=== PATIENT | male | born 1945 | race Caucasian/White ===

== ENCOUNTER 2018-08-15 16:44 | Inpatient (IN) | payer MEDICARE, MEDICAID ==
[2018-08-15 17:30] VITALS: BP 158/80
[2018-08-15] MEDS ORDERED: Magnesium Hydroxide (MOM) 30 mL UDC PO PRN (18:42)
[2018-08-15] MEDS ORDERED: Maalox 30 mL Cup PO PRN (18:42)
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
[2018-08-16] MEDS ORDERED: GLUCAGON HCl 1 MG KIT IM PRN (05:28)
[2018-08-16] MEDS ORDERED: Dextrose 50% 50 mL Abboject IVP PRN (05:28)
[2018-08-16] MEDS: INSULIN LISPRO SLIDING SCALE 100 UNITS/ML UNIT SUBQ SCH ×4 (06:36→20:33)
[2018-08-16 06:58] LABS: CHOLESTEROL 206 mg/dL (<200); HDL -HIGH DENSITY LIPOPROTEIN 39 mg/dL (23-92); TRIGLYCERIDES 144 mg/dL (<150)
[2018-08-16] MEDS ORDERED: INSULIN LISPRO 100 UNIT/ML VIAL SUBQ SCH (07:30)
[2018-08-16] MEDS ORDERED: Non-Formulary Item 1 EA (Cholecalciferol (Vitamin D3) [Vitamin D3] 5,000 UNIT) PO SCH (09:00)
[2018-08-16] MEDS ORDERED: NALOXEGOL OXALATE 12.5 MG PO SCH (09:00)
[2018-08-16] MEDS ORDERED: Non-Formulary Item 1 EA (Linaclotide [Linzess] 145 MCG) PO SCH (09:00)
[2018-08-16] MEDS ORDERED: Aspirin 81mg Chewable Tab PO SCH (09:00)
[2018-08-16] MEDS ORDERED: Ferrous Sulfate 325 MG TAB PO SCH (09:00)
[2018-08-16] MEDS: Ferrous Sulfate 325 MG TAB PO SCH (10:11)
[2018-08-16] MEDS: Multivitamin Tab PO SCH (10:12)
[2018-08-16] MEDS ORDERED: Non-Formulary Item 1 EA (Gabapentin [Gabapentin] 600 MG) PO SCH (17:00)
[2018-08-16] MEDS: Insulin Glargine 100 units/ml 10ml Vial SUBQ SCH (20:32)
[2018-08-16] MEDS ORDERED: Insulin Glargine 100 units/ml 10ml Vial SUBQ SCH (21:00)
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
[2018-08-17] MEDS: INSULIN LISPRO SLIDING SCALE 100 UNITS/ML UNIT SUBQ SCH ×4 (06:44→20:58)
--- NOTE | 2018-08-17 08:36 | General Progress Note ---
Subjective - Review of Systems Service Date: 08/17/18 Subjective: Patient is awake, alert, no acute distress. Vs T 97.3 P92 BP 124/82 R20 Objective - Results Recent Labs: Laboratory Last Values POC Glucose 148 MG/DL (70 - 105) H 08/17/18 06:38 Triglycerides 144 mg/dL (<150) 08/16/18 05:50 Cholesterol 206 mg/dL (<200) H 08/16/18 05:50 LDL Cholesterol Direct 164 mg/dL (75-193) 08/16/18 05:50 HDL Cholesterol 39 mg/dL (23-92) 08/16/18 05:50 - Physical Exam Vitals and I&O: Vital Signs Temp 97.3 F 08/17/18 06:08 Pulse 92 08/17/18 06:08 Resp 20 08/17/18 06:08 BP 124/82 08/17/18 06:08 Pulse Ox 99 08/17/18 06:08 Intake & Output 08/16/18 08/17/18 08/17/18 18:59 06:59 18:59 Intake Total 300 Balance 300 Intake: Oral 300 Other: # Voids 1 # Bowel Movements 0 Active Medications: Current Medications Acetaminophen (Tylenol) 650 mg PO Q4HR PRN PRN Reason: Mild Pain / Temp above 100 Stop: 10/14/18 18:41 Last Admin: 08/16/18 20:32 Dose: 650 mg Al Hydrox/Mg Hydrox/Simethicone (Maalox) 30 ml PO Q4HR PRN PRN Reason: GI DISTRESS Stop: 10/14/18 18:41 Amlodipine Besylate (Norvasc) 10 mg PO DAILY [facility] Stop: 10/16/18 08:59 Ascorbic Acid (Vitamin C) 500 mg PO DAILY [facility] Stop: 10/15/18 08:59 Last Admin: 08/16/18 10:12 Dose: 500 mg Baclofen (Lioresal) 10 mg PO TID [facility] Stop: 10/15/18 08:59 Last Admin: 08/16/18 20:31 Dose: 10 mg Cholecalciferol (Vitamin D3) 2,000 iu PO DAILY [facility] Stop: 10/15/18 08:59 Last Admin: 08/16/18 10:09 Dose: 2,000 iu Clopidogrel Bisulfate (Plavix) 75 mg PO DAILY [facility] Stop: 10/16/18 08:59 Dextrose (D50w) 50 ml IVP PRN PRN PRN Reason: Blood Glucose less than 70 Stop: 10/15/18 05:27 Dextrose (Glutose 40%) 18.75 gm PO PRN PRN PRN Reason: Blood Glucose less than 70 Stop: 10/15/18 05:27 Diphenhydramine HCl (Benadryl) 25 mg PO Q6HR PRN PRN Reason: Itching Stop: 10/15/18 20:12 Ferrous Sulfate (Iron) 325 mg PO DAILY [facility] Stop: 10/15/18 08:59 Last Admin: 08/16/18 10:11 Dose: 325 mg Finasteride (Proscar) 5 mg PO DAILY [facility]; Protocol Stop: 10/15/18 08:59 Last Admin: 08/16/18 10:09 Dose: 5 mg Gabapentin (Neurontin) 600 mg PO DAILY [facility] Stop: 10/15/18 08:59 Last Admin: 08/16/18 10:11 Dose: 600 mg Glucagon (Glucagen) 1 mg IM PRN PRN PRN Reason: Blood Glucose less than 70 Stop: 10/15/18 05:27 Insulin Glargine (Lantus Insulin) 10 units SUBQ HS [facility] Stop: 10/15/18 20:59 Last Admin: 08/16/18 20:32 Dose: 10 unit Insulin Human Lispro (Humalog Insulin Sliding Scale) 0 units SUBQ [facility]; Protocol Stop: 10/15/18 07:29 Last Admin: 08/17/18 06:44 Dose: Not Given Lorazepam (Ativan) 0.5 mg PO Q4HR PRN; Protocol PRN Reason: Agitation Stop: 09/14/18 18:41 Last Admin: 08/16/18 23:03 Dose: 0.5 mg Magnesium Hydroxide (Milk Of Magnesia) 30 ml PO HS PRN PRN Reason: Constipation Metformin HCl (Glucophage) 1,000 mg PO BIDWM [facility] Stop: 10/15/18 07:59 Last Admin: 08/16/18 18:28 Dose: 1,000 mg Multivitamins/Vitamin C (Theragran) 1 tab PO DAILY [facility] Stop: 10/15/18 08:59 Last Admin: 08/16/18 10:12 Dose: 1 tab Nitroglycerin (Nitrostat) 0.4 mg SL Q5MIN PRN PRN Reason: Chest Pain Stop: 10/15/18 06:18 Tamsulosin HCl (Flomax) 0.4 mg PO HS [facility] Stop: 10/15/18 20:59 Last Admin: 08/16/18 20:36 Dose: 0.4 mg Zolpidem Tartrate (Ambien) 5 mg PO HS PRN PRN Reason: Insomnia Stop: 10/14/18 18:41 General: Alert, Oriented x3 HEENT: Atraumatic, PERRLA, EOMI Neck: Supple Cardiovascular: Regular rate, Normal S1, Normal S2 Lungs: Clear to auscultation Abdomen: Bowel sounds Extremities: no Clubbing, no Cyanosis, no Edema Neurological: Normal gait, Normal speech Assessment/Plan - Assessment Assessment: Psychosis Type 2 DM HTN Depression Cognitive Impairment Incontinence Diabetic Neuropathy CAD BPH Chronic LBP - Plan Plan: admit to [facility] continue home meds
[2018-08-17] MEDS: Multivitamin Tab PO SCH (08:43)
[2018-08-17] MEDS: Ferrous Sulfate 325 MG TAB PO SCH (08:43)
[2018-08-17] MEDS: Insulin Glargine 100 units/ml 10ml Vial SUBQ SCH (20:58)
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
--- NOTE | 2018-08-18 02:53 | Progress Notes ---
DATE: 08/17/2018 PSYCHIATRIC PROGRESS NOTE Staff was spoken to. The patient is interviewed. Mood is noted to be irritable. Affect is constricted. Insight and judgment are noted to be still impaired. Impulse control is also limited. Coping skills are noted to be limited. The patient is stating that he is willing to take his medication for his sugar and blood pressure, but is not willing to take any psych medications because he is not sick. The patient is isolative and withdrawn at this time. The patient is being closely monitored for any inappropriate behavior. JOB# [id number]
[2018-08-18] MEDS: INSULIN LISPRO SLIDING SCALE 100 UNITS/ML UNIT SUBQ SCH ×4 (06:30→21:15)
--- NOTE | 2018-08-18 08:15 | General Progress Note ---
Subjective - Review of Systems Service Date: 08/18/18 Subjective: Patient is awake, alert, no acute distress. Vs T 98.1 P82 BP 132/85 R20 Blood Sugars mid 100's Objective - Results Recent Labs: Laboratory Last Values POC Glucose 149 MG/DL (70 - 105) H 08/18/18 06:00 Triglycerides 144 mg/dL (<150) 08/16/18 05:50 Cholesterol 206 mg/dL (<200) H 08/16/18 05:50 LDL Cholesterol Direct 164 mg/dL (75-193) 08/16/18 05:50 HDL Cholesterol 39 mg/dL (23-92) 08/16/18 05:50 - Physical Exam Vitals and I&O: Vital Signs Temp 98.1 F 08/18/18 06:36 Pulse 82 08/18/18 06:36 Resp 20 08/18/18 06:36 BP 138/85 08/18/18 06:36 Pulse Ox 95 08/18/18 06:36 Intake & Output 08/17/18 08/18/18 08/18/18 18:59 06:59 18:59 Intake Total 1000 240 Balance 1000 240 Intake: Oral 1000 240 Other: # Voids 4 3 # Bowel Movements 0 0 Active Medications: Current Medications Acetaminophen (Tylenol) 650 mg PO Q4HR PRN PRN Reason: Mild Pain / Temp above 100 Stop: 10/14/18 18:41 Last Admin: 08/18/18 00:37 Dose: 650 mg Al Hydrox/Mg Hydrox/Simethicone (Maalox) 30 ml PO Q4HR PRN PRN Reason: GI DISTRESS Stop: 10/14/18 18:41 Amlodipine Besylate (Norvasc) 10 mg PO DAILY [facility] Stop: 10/16/18 08:59 Last Admin: 08/17/18 08:43 Dose: Not Given Ascorbic Acid (Vitamin C) 500 mg PO DAILY [facility] Stop: 10/15/18 08:59 Last Admin: 08/17/18 08:43 Dose: Not Given Baclofen (Lioresal) 10 mg PO TID [facility] Stop: 10/15/18 08:59 Last Admin: 08/17/18 20:56 Dose: 10 mg Cholecalciferol (Vitamin D3) 2,000 iu PO DAILY [facility] Stop: 10/15/18 08:59 Last Admin: 08/17/18 08:43 Dose: Not Given Clopidogrel Bisulfate (Plavix) 75 mg PO DAILY [facility] Stop: 10/16/18 08:59 Last Admin: 08/17/18 08:43 Dose: Not Given Dextrose (D50w) 50 ml IVP PRN PRN PRN Reason: Blood Glucose less than 70 Stop: 10/15/18 05:27 Dextrose (Glutose 40%) 18.75 gm PO PRN PRN PRN Reason: Blood Glucose less than 70 Stop: 10/15/18 05:27 Diphenhydramine HCl (Benadryl) 25 mg PO Q6HR PRN PRN Reason: Itching Stop: 10/15/18 20:12 Ferrous Sulfate (Iron) 325 mg PO DAILY [facility] Stop: 10/15/18 08:59 Last Admin: 08/17/18 08:43 Dose: Not Given Finasteride (Proscar) 5 mg PO DAILY [facility]; Protocol Stop: 10/15/18 08:59 Last Admin: 08/17/18 08:43 Dose: Not Given Gabapentin (Neurontin) 600 mg PO DAILY [facility] Stop: 10/15/18 08:59 Last Admin: 08/17/18 08:43 Dose: Not Given Glucagon (Glucagen) 1 mg IM PRN PRN PRN Reason: Blood Glucose less than 70 Stop: 10/15/18 05:27 Insulin Glargine (Lantus Insulin) 10 units SUBQ HS [facility] Stop: 10/15/18 20:59 Last Admin: 08/17/18 20:58 Dose: 10 unit Insulin Human Lispro (Humalog Insulin Sliding Scale) 0 units SUBQ [facility]; Protocol Stop: 10/15/18 07:29 Last Admin: 08/18/18 06:30 Dose: Not Given Lorazepam (Ativan) 0.5 mg PO Q4HR PRN; Protocol PRN Reason: Agitation Stop: 09/14/18 18:41 Last Admin: 08/18/18 00:34 Dose: 0.5 mg Magnesium Hydroxide (Milk Of Magnesia) 30 ml PO HS PRN PRN Reason: Constipation Metformin HCl (Glucophage) 1,000 mg PO BIDWM [facility] Stop: 10/15/18 07:59 Last Admin: 08/17/18 17:22 Dose: 1,000 mg Multivitamins/Vitamin C (Theragran) 1 tab PO DAILY [facility] Stop: 10/15/18 08:59 Last Admin: 08/17/18 08:43 Dose: Not Given Mupirocin (Bactroban Oint) 1 appl NS BID [facility] Stop: 08/22/18 17:01 Nitroglycerin (Nitrostat) 0.4 mg SL Q5MIN PRN PRN Reason: Chest Pain Stop: 10/15/18 06:18 Tamsulosin HCl (Flomax) 0.4 mg PO HS [facility] Stop: 10/15/18 20:59 Last Admin: 08/17/18 20:57 Dose: 0.4 mg Zolpidem Tartrate (Ambien) 5 mg PO HS PRN PRN Reason: Insomnia Stop: 10/14/18 18:41 General: Alert, Oriented x3 HEENT: Atraumatic, PERRLA, EOMI Neck: Supple Cardiovascular: Regular rate, Normal S1, Normal S2 Lungs: Clear to auscultation Abdomen: Bowel sounds Extremities: no Clubbing, no Cyanosis, no Edema Neurological: Normal gait, Normal speech Assessment/Plan - Assessment Assessment: Psychosis Type 2 DM HTN Depression Cognitive Impairment Incontinence Diabetic Neuropathy CAD BPH Chronic LBP - Plan Plan: admit to [facility] continue home meds
[2018-08-18] MEDS: Multivitamin Tab PO SCH (09:55)
[2018-08-18] MEDS: Ferrous Sulfate 325 MG TAB PO SCH (09:55)
[2018-08-18] MEDS: Insulin Glargine 100 units/ml 10ml Vial SUBQ SCH (21:14)
--- NOTE | 2018-08-19 01:54 | Progress Notes ---
DATE: 08/18/2018 SUBJECTIVE: Staff was spoken to. The patient is interviewed. Mood is noted to be irritable. Affect is constricted. Insight and judgment are noted to be improving. Impulse control seems to be fair, but in the previous facility, he has reported that the patient has been sexually preoccupied and has been trying to pull his pants down, but at this time, they have been observing the patient and we have not seen that kind of sexualized behavior. PLAN: To closely monitor the patient. I encouraged the patient to verbalize the concerns rather than to act out. JOB# [id number]
[2018-08-19] MEDS: INSULIN LISPRO SLIDING SCALE 100 UNITS/ML UNIT SUBQ SCH ×4 (07:05→20:57)
--- NOTE | 2018-08-19 08:13 | General Progress Note ---
Subjective - Review of Systems Service Date: 08/19/18 Subjective: Patient is awake, alert, no acute distress. Vs T 98.1 P82 BP 132/85 R20 Blood Sugars mid 100's to 200's Objective - Results Recent Labs: Laboratory Last Values POC Glucose 186 MG/DL (70 - 105) H 08/19/18 06:36 Triglycerides 144 mg/dL (<150) 08/16/18 05:50 Cholesterol 206 mg/dL (<200) H 08/16/18 05:50 LDL Cholesterol Direct 164 mg/dL (75-193) 08/16/18 05:50 HDL Cholesterol 39 mg/dL (23-92) 08/16/18 05:50 - Physical Exam Vitals and I&O: Vital Signs Temp 97.9 F 08/19/18 06:44 Pulse 89 08/19/18 06:44 Resp 20 08/19/18 06:44 BP 147/87 08/19/18 06:44 Pulse Ox 97 08/19/18 06:44 Intake & Output 08/18/18 08/19/18 08/19/18 18:59 06:59 18:59 Intake Total 240 Balance 240 Intake: Oral 240 Other: # Voids 3 # Bowel Movements 0 Active Medications: Current Medications Acetaminophen (Tylenol) 650 mg PO Q4HR PRN PRN Reason: Mild Pain / Temp above 100 Stop: 10/14/18 18:41 Last Admin: 08/18/18 00:37 Dose: 650 mg Al Hydrox/Mg Hydrox/Simethicone (Maalox) 30 ml PO Q4HR PRN PRN Reason: GI DISTRESS Stop: 10/14/18 18:41 Amlodipine Besylate (Norvasc) 10 mg PO DAILY [facility] Stop: 10/16/18 08:59 Last Admin: 08/18/18 09:55 Dose: 10 mg Ascorbic Acid (Vitamin C) 500 mg PO DAILY [facility] Stop: 10/15/18 08:59 Last Admin: 08/18/18 09:55 Dose: 500 mg Baclofen (Lioresal) 10 mg PO TID [facility] Stop: 10/15/18 08:59 Last Admin: 08/18/18 21:03 Dose: 10 mg Cholecalciferol (Vitamin D3) 2,000 iu PO DAILY [facility] Stop: 10/15/18 08:59 Last Admin: 08/18/18 09:55 Dose: 2,000 iu Clopidogrel Bisulfate (Plavix) 75 mg PO DAILY [facility] Stop: 10/16/18 08:59 Last Admin: 08/18/18 09:55 Dose: 75 mg Dextrose (D50w) 50 ml IVP PRN PRN PRN Reason: Blood Glucose less than 70 Stop: 10/15/18 05:27 Dextrose (Glutose 40%) 18.75 gm PO PRN PRN PRN Reason: Blood Glucose less than 70 Stop: 10/15/18 05:27 Diphenhydramine HCl (Benadryl) 25 mg PO Q6HR PRN PRN Reason: Itching Stop: 10/15/18 20:12 Ferrous Sulfate (Iron) 325 mg PO DAILY [facility] Stop: 10/15/18 08:59 Last Admin: 08/18/18 09:55 Dose: 325 mg Finasteride (Proscar) 5 mg PO DAILY [facility]; Protocol Stop: 10/15/18 08:59 Last Admin: 08/18/18 09:55 Dose: 5 mg Gabapentin (Neurontin) 600 mg PO DAILY [facility] Stop: 10/15/18 08:59 Last Admin: 08/18/18 09:55 Dose: 600 mg Glucagon (Glucagen) 1 mg IM PRN PRN PRN Reason: Blood Glucose less than 70 Stop: 10/15/18 05:27 Insulin Glargine (Lantus Insulin) 6 units SUBQ BID [facility] Stop: 10/18/18 08:59 Insulin Human Lispro (Humalog Insulin Sliding Scale) 0 units SUBQ ACHS [facility]; Protocol Stop: 10/15/18 07:29 Last Admin: 08/19/18 07:05 Dose: 2 units Lorazepam (Ativan) 0.5 mg PO Q4HR PRN; Protocol PRN Reason: Agitation Stop: 09/14/18 18:41 Last Admin: 08/18/18 00:34 Dose: 0.5 mg Magnesium Hydroxide (Milk Of Magnesia) 30 ml PO HS PRN PRN Reason: Constipation Metformin HCl (Glucophage) 1,000 mg PO BIDWM [facility] Stop: 10/15/18 07:59 Last Admin: 08/18/18 17:14 Dose: 1,000 mg Multivitamins/Vitamin C (Theragran) 1 tab PO DAILY [facility] Stop: 10/15/18 08:59 Last Admin: 08/18/18 09:55 Dose: 1 tab Mupirocin (Bactroban Oint) 1 appl NS BID [facility] Stop: 08/22/18 17:01 Last Admin: 08/18/18 17:10 Dose: 1 appl Nitroglycerin (Nitrostat) 0.4 mg SL Q5MIN PRN PRN Reason: Chest Pain Stop: 10/15/18 06:18 Tamsulosin HCl (Flomax) 0.4 mg PO HS [facility] Stop: 10/15/18 20:59 Last Admin: 08/18/18 21:03 Dose: 0.4 mg Zolpidem Tartrate (Ambien) 5 mg PO HS PRN PRN Reason: Insomnia Stop: 10/14/18 18:41 General: Alert, Oriented x3 HEENT: Atraumatic, PERRLA, EOMI Neck: Supple Cardiovascular: Regular rate, Normal S1, Normal S2 Lungs: Clear to auscultation Abdomen: Bowel sounds Extremities: no Clubbing, no Cyanosis, no Edema Neurological: Normal gait, Normal speech Assessment/Plan - Assessment Assessment: Psychosis Type 2 DM HTN Depression Cognitive Impairment Incontinence Diabetic Neuropathy CAD BPH Chronic LBP - Plan Plan: admit to [facility] continue home meds increase Lantus to 6u BID
[2018-08-19] MEDS: Ferrous Sulfate 325 MG TAB PO SCH (09:42)
[2018-08-19] MEDS: Multivitamin Tab PO SCH (09:46)
[2018-08-19] MEDS: Insulin Glargine 100 units/ml 10ml Vial SUBQ SCH ×2 (10:00→17:09)
--- NOTE | 2018-08-19 15:53 | Progress Notes ---
DATE: 08/19/2018 SUBJECTIVE: Staff was spoken to. The patient is interviewed. Mood is noted to be less irritable. Affect is appropriate. The patient is reporting that he is not a sexual pervert and he has not been doing anything. There is no reason for him to take any medications. The patient is isolative and withdrawn. No side effects to the medications are noted at this time. ASSESSMENT: The patient is being closely monitored for any sexually inappropriate behavior. The patient is going to be encouraged to participate in the groups and verbalize the concerns. Once stabilized, the patient is going to be discharged to [facility] to be followed up. JOB# [id number]
[2018-08-20] MEDS: INSULIN LISPRO SLIDING SCALE 100 UNITS/ML UNIT SUBQ SCH ×4 (07:30→20:48)
--- NOTE | 2018-08-20 08:19 | General Progress Note ---
Subjective - Review of Systems Service Date: 08/20/18 Subjective: Patient is awake, alert, no acute distress. Vs T 98.1 P82 BP 132/85 R20 Blood Sugars mid 100's to 200's Objective - Results Recent Labs: Laboratory Last Values POC Glucose 202 MG/DL (70 - 105) H 08/20/18 05:47 Triglycerides 144 mg/dL (<150) 08/16/18 05:50 Cholesterol 206 mg/dL (<200) H 08/16/18 05:50 LDL Cholesterol Direct 164 mg/dL (75-193) 08/16/18 05:50 HDL Cholesterol 39 mg/dL (23-92) 08/16/18 05:50 - Physical Exam Vitals and I&O: Vital Signs Temp 97.6 F 08/20/18 06:35 Pulse 77 08/20/18 06:35 Resp 19 08/20/18 06:35 BP 104/61 08/20/18 06:35 Pulse Ox 99 08/20/18 06:35 Intake & Output 08/19/18 08/20/18 08/20/18 18:59 06:59 18:59 Intake Total 280 Balance 280 Intake: Oral 280 Other: # Voids 2 # Bowel Movements 1 Active Medications: Current Medications Acetaminophen (Tylenol) 650 mg PO Q4HR PRN PRN Reason: Mild Pain / Temp above 100 Stop: 10/14/18 18:41 Last Admin: 08/20/18 04:32 Dose: 650 mg Al Hydrox/Mg Hydrox/Simethicone (Maalox) 30 ml PO Q4HR PRN PRN Reason: GI DISTRESS Stop: 10/14/18 18:41 Amlodipine Besylate (Norvasc) 10 mg PO DAILY [facility] Stop: 10/16/18 08:59 Last Admin: 08/19/18 09:42 Dose: 10 mg Ascorbic Acid (Vitamin C) 500 mg PO DAILY [facility] Stop: 10/15/18 08:59 Last Admin: 08/19/18 09:42 Dose: 500 mg Baclofen (Lioresal) 10 mg PO TID [facility] Stop: 10/15/18 08:59 Last Admin: 08/19/18 20:56 Dose: 10 mg Cholecalciferol (Vitamin D3) 2,000 iu PO DAILY [facility] Stop: 10/15/18 08:59 Last Admin: 08/19/18 09:42 Dose: 2,000 iu Clopidogrel Bisulfate (Plavix) 75 mg PO DAILY [facility] Stop: 10/16/18 08:59 Last Admin: 08/19/18 09:42 Dose: 75 mg Dextrose (D50w) 50 ml IVP PRN PRN PRN Reason: Blood Glucose less than 70 Stop: 10/15/18 05:27 Dextrose (Glutose 40%) 18.75 gm PO PRN PRN PRN Reason: Blood Glucose less than 70 Stop: 10/15/18 05:27 Diphenhydramine HCl (Benadryl) 25 mg PO Q6HR PRN PRN Reason: Itching Stop: 10/15/18 20:12 Ferrous Sulfate (Iron) 325 mg PO DAILY [facility] Stop: 10/15/18 08:59 Last Admin: 08/19/18 09:42 Dose: 325 mg Finasteride (Proscar) 5 mg PO DAILY [facility]; Protocol Stop: 10/15/18 08:59 Last Admin: 08/19/18 09:42 Dose: 5 mg Gabapentin (Neurontin) 600 mg PO DAILY [facility] Stop: 10/15/18 08:59 Last Admin: 08/19/18 09:42 Dose: 600 mg Glucagon (Glucagen) 1 mg IM PRN PRN PRN Reason: Blood Glucose less than 70 Stop: 10/15/18 05:27 Insulin Human Lispro (Humalog Insulin Sliding Scale) 0 units SUBQ ACHS [facility]; Protocol Stop: 10/15/18 07:29 Last Admin: 08/19/18 20:57 Dose: 4 units Lorazepam (Ativan) 0.5 mg PO Q4HR PRN; Protocol PRN Reason: Agitation Stop: 09/14/18 18:41 Last Admin: 08/18/18 00:34 Dose: 0.5 mg Magnesium Hydroxide (Milk Of Magnesia) 30 ml PO HS PRN PRN Reason: Constipation Metformin HCl (Glucophage) 1,000 mg PO BIDWM [facility] Stop: 10/15/18 07:59 Last Admin: 08/19/18 17:36 Dose: 1,000 mg Multivitamins/Vitamin C (Theragran) 1 tab PO DAILY [facility] Stop: 10/15/18 08:59 Last Admin: 08/19/18 09:46 Dose: 1 tab Mupirocin (Bactroban Oint) 1 appl NS BID [facility] Stop: 08/22/18 17:01 Last Admin: 08/19/18 17:19 Dose: 1 appl Nitroglycerin (Nitrostat) 0.4 mg SL Q5MIN PRN PRN Reason: Chest Pain Stop: 10/15/18 06:18 Tamsulosin HCl (Flomax) 0.4 mg PO HS [facility] Stop: 10/15/18 20:59 Last Admin: 08/19/18 20:57 Dose: 0.4 mg Zolpidem Tartrate (Ambien) 5 mg PO HS PRN PRN Reason: Insomnia Stop: 10/14/18 18:41 General: Alert, Oriented x3 HEENT: Atraumatic, PERRLA, EOMI Neck: Supple Cardiovascular: Regular rate, Normal S1, Normal S2 Lungs: Clear to auscultation Abdomen: Bowel sounds Extremities: no Clubbing, no Cyanosis, no Edema Neurological: Normal gait, Normal speech Assessment/Plan - Assessment Assessment: Psychosis Type 2 DM HTN Depression Cognitive Impairment Incontinence Diabetic Neuropathy CAD BPH Chronic LBP - Plan Plan: admit to [facility] continue home meds increase Lantus to 6u BID Nutritional Asmnt/Malnutr-PDOC - Dietary Evaluation Malnutrition Findings (Please click <Entered> for more info): Nutritional Asmnt/Malnutrition Start: 08/19/18 14: 45 Text: Status: Complete Freq: Protocol: Document 08/19/18 14:52 LCHENG (Rec: 08/19/18 14:56 [email or web address]) Nutritional Asmnt/Malnutrition Patient General Information Nutritional Screening Moderate Risk Diagnosis psychosis Pertinent Medical Hx/Surgical Hx CAD, HTN, dementia, depression , psychosis, low back pain, chronic renal insuff, DM Subjective Information Pt seen sleeping in bed at time of visit. per EMR, PO intake 100% since admission. Current Diet Order/ Nutrition Support CCHO 60gm, low NA Pertinent Medications vit C, vit D3, iron, lantus, humalog, glucophage Pertinent Labs 08/18-08/19 POC 149-321 Nutritional Hx/Data Height 1.73 m Height (Calculated Centimeters) 172.7 Current Weight (lbs) 68.039 kg Weight (Calculated Kilograms) 68.0 Weight (Calculated Grams) 64244.9 [place] Body Weight 154 Body Mass Index (BMI) 22.8 Weight Status Approriate GI Symptoms GI Symptoms None Last BM 2/25 Difficult in: None Skin Integrity/Comment: intact Current %PO Good (75-100%) Estimated Nutritional Goals BEE in Kcals: Using Current wt Calories/Kcals/Kg 25-30 Kcals Calculated 0365-7582 Protein: Using Current wt Protein g/k Protein Calculated 68 Fluid: ml 1700-2040ml (1ml/kcal) Nutritional Problem 1. Problem Problem altered nutritiion relate labs Etiology hyperglycemia Signs/Symptoms: POC 149-321 Malnutrition Alert Is there a minimum of two criteria No selected? Query Text:Check all the applicable criteria. A minimum of two criteria are recommended for diagnosis of either severe or non-severe malnutrition. Malnutrition Related to Morbid Obesity Malnutrition related to morbid obesity No Intervention/Recommendation Comments [facility]. [facility] sodium diet as ordered. MD to adjust insulin regimen for optimal glycemic control. 2. Monitor PO intake, wt, labs and skin integrity 3. F/U as moderate risk in 3-5 days Expected Outcomes/Goals Expected Outcomes/Goals 1. PO intake to meet at least 75% of nutritional needs. 2. Wt stability, skin to remain intact, labs to approach WNL.
[2018-08-20] MEDS: Insulin Glargine 100 units/ml 10ml Vial SUBQ SCH ×2 (09:00→17:11)
[2018-08-20] MEDS: Multivitamin Tab PO SCH (09:47)
[2018-08-20] MEDS: Ferrous Sulfate 325 MG TAB PO SCH (09:48)
--- NOTE | 2018-08-20 10:45 | Progress Notes ---
DATE: 08/19/2018 PSYCHOLOGY PROGRESS NOTE SUBJECTIVE: The patient is seen and is interviewed. Case is discussed with staff. The patient presents as less irritable this visit. The patient is stating that he has not done anything wrong. When asked to elaborate, the patient stated that he is not a sexual pervert and that it is wrong that people think about him that way. The patient continues to be withdrawn. The staff indicates the patient intermittently does not comply with his medications. OBJECTIVE: Mood is less irritable. Affect is appropriate. The patient denied any suicidal ideation, plan or intention. The patient denies any inappropriate sexual behavior. The patient denied any delusions or hallucinations. The patient continues to be withdrawn. ASSESSMENT AND PLAN: We will continue to monitor for any inappropriate sexual behavior. We will provide limit setting to include boundary awareness and boundary definitions. We will encourage the patient to be able to demonstrate emotional and self-regulation with respect to his past sexually inappropriate behavior. We will provide coping strategies for phase of life issues. We will provide reality integration as well. We will follow up in 2-3 days to continue the cognitive and behavioral therapeutic approach for treatment. JOB# [id number] MTDD
--- NOTE | 2018-08-21 06:07 | Progress Notes ---
DATE: 08/20/2018 PSYCHIATRIC PROGRESS NOTE SUBJECTIVE: Staff was spoken to. The patient is interviewed. Mood is noted to be less irritable. Affect is appropriate. The patient is stating that he has not done anything. There is no reason for him to take any medications. The patient is refusing to take the antipsychotics that have been ordered. No major behavioral problems are noted at this time. commercial project manager is requested to get in touch with the intermediate facility to see if they are willing to take the patient or not. ASSESSMENT: The patient is stabilizing. PLAN: To continue the patient with the supportive therapy. I encouraged the patient to verbalize the concerns rather than to act out. JOB# [id number]
[2018-08-21] MEDS: INSULIN LISPRO SLIDING SCALE 100 UNITS/ML UNIT SUBQ SCH ×4 (06:45→21:53)
[2018-08-21] MEDS: Multivitamin Tab PO SCH (08:15)
[2018-08-21] MEDS: Ferrous Sulfate 325 MG TAB PO SCH (08:20)
--- NOTE | 2018-08-21 08:20 | General Progress Note ---
Subjective - Review of Systems Service Date: 08/21/18 Subjective: Patient is awake, alert, no acute distress. Vs T 97.4 P70 BP 130/87 R20 Blood Sugars low 100's Objective - Results Recent Labs: Laboratory Last Values POC Glucose 105 MG/DL (70 - 105) 08/20/18 20:44 Triglycerides 144 mg/dL (<150) 08/16/18 05:50 Cholesterol 206 mg/dL (<200) H 08/16/18 05:50 LDL Cholesterol Direct 164 mg/dL (75-193) 08/16/18 05:50 HDL Cholesterol 39 mg/dL (23-92) 08/16/18 05:50 - Physical Exam Vitals and I&O: Vital Signs Temp 97.4 F 08/21/18 06:36 Pulse 70 08/21/18 06:36 Resp 20 08/21/18 06:36 BP 130/87 08/21/18 06:36 Pulse Ox 99 08/21/18 06:36 Intake & Output 08/20/18 08/21/18 08/21/18 18:59 06:59 18:59 Intake Total 960 120 Balance 960 120 Intake: Oral 960 120 Other: # Voids 4 3 # Bowel Movements 1 Active Medications: Current Medications Acetaminophen (Tylenol) 650 mg PO Q4HR PRN PRN Reason: Mild Pain / Temp above 100 Stop: 10/14/18 18:41 Last Admin: 08/21/18 04:00 Dose: 650 mg Al Hydrox/Mg Hydrox/Simethicone (Maalox) 30 ml PO Q4HR PRN PRN Reason: GI DISTRESS Stop: 10/14/18 18:41 Amlodipine Besylate (Norvasc) 10 mg PO DAILY [facility] Stop: 10/16/18 08:59 Last Admin: 08/20/18 09:47 Dose: 10 mg Ascorbic Acid (Vitamin C) 500 mg PO DAILY [facility] Stop: 10/15/18 08:59 Last Admin: 08/20/18 09:51 Dose: 500 mg Baclofen (Lioresal) 10 mg PO TID [facility] Stop: 10/15/18 08:59 Last Admin: 08/20/18 20:47 Dose: 10 mg Cholecalciferol (Vitamin D3) 2,000 iu PO DAILY [facility] Stop: 10/15/18 08:59 Last Admin: 08/20/18 09:49 Dose: 2,000 iu Clopidogrel Bisulfate (Plavix) 75 mg PO DAILY [facility] Stop: 10/16/18 08:59 Last Admin: 08/20/18 09:48 Dose: 75 mg Dextrose (D50w) 50 ml IVP PRN PRN PRN Reason: Blood Glucose less than 70 Stop: 10/15/18 05:27 Dextrose (Glutose 40%) 18.75 gm PO PRN PRN PRN Reason: Blood Glucose less than 70 Stop: 10/15/18 05:27 Diphenhydramine HCl (Benadryl) 25 mg PO Q6HR PRN PRN Reason: Itching Stop: 10/15/18 20:12 Ferrous Sulfate (Iron) 325 mg PO DAILY [facility] Stop: 10/15/18 08:59 Last Admin: 08/20/18 09:48 Dose: 325 mg Finasteride (Proscar) 5 mg PO DAILY [facility]; Protocol Stop: 10/15/18 08:59 Last Admin: 08/20/18 09:46 Dose: 5 mg Gabapentin (Neurontin) 600 mg PO DAILY [facility] Stop: 10/15/18 08:59 Last Admin: 08/20/18 09:47 Dose: 600 mg Glucagon (Glucagen) 1 mg IM PRN PRN PRN Reason: Blood Glucose less than 70 Stop: 10/15/18 05:27 Insulin Glargine (Lantus Insulin) 7 units SUBQ BID [facility] Stop: 10/19/18 08:59 Last Admin: 08/20/18 17:11 Dose: 7 unit Insulin Human Lispro (Humalog Insulin Sliding Scale) 0 units SUBQ ACHS [facility]; Protocol Stop: 10/15/18 07:29 Last Admin: 08/21/18 06:45 Dose: Not Given Lorazepam (Ativan) 0.5 mg PO Q4HR PRN; Protocol PRN Reason: Agitation Stop: 09/14/18 18:41 Last Admin: 08/21/18 06:47 Dose: 0.5 mg Magnesium Hydroxide (Milk Of Magnesia) 30 ml PO HS PRN PRN Reason: Constipation Metformin HCl (Glucophage) 1,000 mg PO BIDWM [facility] Stop: 10/15/18 07:59 Last Admin: 08/20/18 09:49 Dose: 1,000 mg Multivitamins/Vitamin C (Theragran) 1 tab PO DAILY [facility] Stop: 10/15/18 08:59 Last Admin: 08/20/18 09:47 Dose: 1 tab Mupirocin (Bactroban Oint) 1 appl NS BID [facility] Stop: 08/22/18 17:01 Last Admin: 08/20/18 16:42 Dose: 1 appl Nitroglycerin (Nitrostat) 0.4 mg SL Q5MIN PRN PRN Reason: Chest Pain Stop: 10/15/18 06:18 Tamsulosin HCl (Flomax) 0.4 mg PO HS [facility] Stop: 10/15/18 20:59 Last Admin: 08/20/18 20:47 Dose: 0.4 mg Zolpidem Tartrate (Ambien) 5 mg PO HS PRN PRN Reason: Insomnia Stop: 10/14/18 18:41 Last Admin: 08/20/18 20:47 Dose: 5 mg General: Alert, Oriented x3 HEENT: Atraumatic, PERRLA, EOMI Neck: Supple Cardiovascular: Regular rate, Normal S1, Normal S2 Lungs: Clear to auscultation Abdomen: Bowel sounds Extremities: no Clubbing, no Cyanosis, no Edema Neurological: Normal gait, Normal speech Assessment/Plan - Assessment Assessment: Psychosis Type 2 DM better controlled. HTN Depression Cognitive Impairment Incontinence Diabetic Neuropathy CAD BPH Chronic LBP - Plan Plan: admit to [facility] continue home meds increase Lantus to 6u BID Nutritional Asmnt/Malnutr-PDOC - Dietary Evaluation Malnutrition Findings (Please click <Entered> for more info): Nutritional Asmnt/Malnutrition Start: 08/19/18 14: 45 Text: Status: Complete Freq: Protocol: Document 08/19/18 14:52 LCHENG (Rec: 08/19/18 14:56 LCHENG [email or web address]) Nutritional Asmnt/Malnutrition Patient General Information Nutritional Screening Moderate Risk Diagnosis psychosis Pertinent Medical Hx/Surgical Hx CAD, HTN, dementia, depression , psychosis, low back pain, chronic renal insuff, DM Subjective Information Pt seen sleeping in bed at time of visit. per EMR, PO intake 100% since admission. Current Diet Order/ Nutrition Support CCHO 60gm, low NA Pertinent Medications vit C, vit D3, iron, lantus, humalog, glucophage Pertinent Labs 08/18-08/19 POC 149-321 Nutritional Hx/Data Height 1.73 m Height (Calculated Centimeters) 172.7 Current Weight (lbs) 68.039 kg Weight (Calculated Kilograms) 68.0 Weight (Calculated Grams) 21966.9 [place] Body Weight 154 Body Mass Index (BMI) 22.8 Weight Status Approriate GI Symptoms GI Symptoms None Last BM 08/17 Difficult in: None Skin Integrity/Comment: intact Current %PO Good (75-100%) Estimated Nutritional Goals BEE in Kcals: Using Current wt Calories/Kcals/Kg 25-30 Kcals Calculated 4017-0878 Protein: Using Current wt Protein g/k Protein Calculated 68 Fluid: ml 1700-2040ml (1ml/kcal) Nutritional Problem 1. Problem Problem altered nutritiion relate labs Etiology hyperglycemia Signs/Symptoms: POC 149-321 Malnutrition Alert Is there a minimum of two criteria No selected? Query Text:Check all the applicable criteria. A minimum of two criteria are recommended for diagnosis of either severe or non-severe malnutrition. Malnutrition Related to Morbid Obesity Malnutrition related to morbid obesity No Intervention/Recommendation Comments 1. Continue with [facility] 60gm low sodium diet as ordered. MD to adjust insulin regimen for optimal glycemic control. 2. Monitor PO intake, wt, labs and skin integrity 3. F/U as moderate risk in 3-5 days Expected Outcomes/Goals Expected Outcomes/Goals 1. PO intake to meet at least 75% of nutritional needs. 2. Wt stability, skin to remain intact, labs to approach WNL.
[2018-08-21] MEDS: Insulin Glargine 100 units/ml 10ml Vial SUBQ SCH ×2 (09:13→16:38)
--- NOTE | 2018-08-21 23:43 | Progress Notes ---
DATE: 08/21/2018 PSYCHIATRIC PROGRESS NOTE SUBJECTIVE: Staff was spoken to. The patient is interviewed. Mood is noted to be irritable. Affect is constricted. Insight and judgment at this time are noted to be still impaired. Impulse control is noted to be improving. The patient is isolative and withdrawn. The patient is stating that he does not know why he has to be in here and he has not done anything wrong. ASSESSMENT: The patient is demented. PLAN: To continue the patient with the supportive therapy. I encouraged the patient to verbalize the concerns rather than to act out. JOB# [id number]
[2018-08-22] MEDS: INSULIN LISPRO SLIDING SCALE 100 UNITS/ML UNIT SUBQ SCH ×4 (06:39→20:53)
[2018-08-22] MEDS: Multivitamin Tab PO SCH (08:44)
[2018-08-22] MEDS: Insulin Glargine 100 units/ml 10ml Vial SUBQ SCH ×2 (08:46→17:17)
[2018-08-22] MEDS: Ferrous Sulfate 325 MG TAB PO SCH (08:46)
--- NOTE | 2018-08-22 10:38 | General Progress Note ---
Subjective - Review of Systems Service Date: 08/22/18 Subjective: Patient is awake, alert, no acute distress. Vs T 97.4 P79 BP 126/66 R20 Blood Sugars mid 100's and low 200's Objective - Results Recent Labs: Laboratory Last Values POC Glucose 237 MG/DL (70 - 105) H 08/21/18 21:39 Triglycerides 144 mg/dL (<150) 08/16/18 05:50 Cholesterol 206 mg/dL (<200) H 08/16/18 05:50 LDL Cholesterol Direct 164 mg/dL (75-193) 08/16/18 05:50 HDL Cholesterol 39 mg/dL (23-92) 08/16/18 05:50 - Physical Exam Vitals and I&O: Vital Signs Temp 98.1 F 08/21/18 20:36 Pulse 78 08/22/18 08:44 Resp 20 08/21/18 20:36 BP 110/69 08/22/18 08:44 Pulse Ox 97 08/21/18 20:36 Intake & Output 08/21/18 08/22/18 08/22/18 18:59 06:59 18:59 Intake Total 1000 240 Balance 1000 240 Intake: Oral 1000 240 Other: # Voids 4 1 # Bowel Movements 1 Active Medications: Current Medications Acetaminophen (Tylenol) 650 mg PO Q4HR PRN PRN Reason: Mild Pain / Temp above 100 Stop: 10/14/18 18:41 Last Admin: 08/22/18 05:03 Dose: 650 mg Al Hydrox/Mg Hydrox/Simethicone (Maalox) 30 ml PO Q4HR PRN PRN Reason: GI DISTRESS Stop: 10/14/18 18:41 Amlodipine Besylate (Norvasc) 10 mg PO DAILY [facility] Stop: 10/16/18 08:59 Last Admin: 08/22/18 08:44 Dose: 10 mg Ascorbic Acid (Vitamin C) 500 mg PO DAILY [facility] Stop: 10/15/18 08:59 Last Admin: 08/22/18 08:46 Dose: 500 mg Baclofen (Lioresal) 10 mg PO TID [facility] Stop: 10/15/18 08:59 Last Admin: 08/22/18 08:46 Dose: 10 mg Cholecalciferol (Vitamin D3) 2,000 iu PO DAILY [facility] Stop: 10/15/18 08:59 Last Admin: 08/22/18 08:45 Dose: 2,000 iu Clopidogrel Bisulfate (Plavix) 75 mg PO DAILY [facility] Stop: 10/16/18 08:59 Last Admin: 08/22/18 08:45 Dose: 75 mg Dextrose (D50w) 50 ml IVP PRN PRN PRN Reason: Blood Glucose less than 70 Stop: 10/15/18 05:27 Dextrose (Glutose 40%) 18.75 gm PO PRN PRN PRN Reason: Blood Glucose less than 70 Stop: 10/15/18 05:27 Diphenhydramine HCl (Benadryl) 25 mg PO Q6HR PRN PRN Reason: Itching Stop: 10/15/18 20:12 Ferrous Sulfate (Iron) 325 mg PO DAILY [facility] Stop: 10/15/18 08:59 Last Admin: 08/22/18 08:46 Dose: 325 mg Finasteride (Proscar) 5 mg PO DAILY [facility]; Protocol Stop: 10/15/18 08:59 Last Admin: 08/22/18 08:44 Dose: 5 mg Gabapentin (Neurontin) 600 mg PO DAILY [facility] Stop: 10/15/18 08:59 Last Admin: 08/22/18 08:44 Dose: 600 mg Glucagon (Glucagen) 1 mg IM PRN PRN PRN Reason: Blood Glucose less than 70 Stop: 10/15/18 05:27 Insulin Glargine (Lantus Insulin) 7 units SUBQ BID [facility] Stop: 10/19/18 08:59 Last Admin: 08/22/18 08:46 Dose: 7 unit Insulin Human Lispro (Humalog Insulin Sliding Scale) 0 units SUBQ ACHS [facility]; Protocol Stop: 10/15/18 07:29 Last Admin: 08/22/18 06:39 Dose: 2 units Lorazepam (Ativan) 0.5 mg PO Q4HR PRN; Protocol PRN Reason: Agitation Stop: 09/14/18 18:41 Last Admin: 08/21/18 06:47 Dose: 0.5 mg Magnesium Hydroxide (Milk Of Magnesia) 30 ml PO HS PRN PRN Reason: Constipation Metformin HCl (Glucophage) 1,000 mg PO BIDWM [facility] Stop: 10/15/18 07:59 Last Admin: 08/22/18 07:21 Dose: 1,000 mg Multivitamins/Vitamin C (Theragran) 1 tab PO DAILY [facility] Stop: 10/15/18 08:59 Last Admin: 08/22/18 08:44 Dose: 1 tab Mupirocin (Bactroban Oint) 1 appl NS BID [facility] Stop: 08/22/18 17:01 Last Admin: 08/22/18 08:46 Dose: 1 appl Nitroglycerin (Nitrostat) 0.4 mg SL Q5MIN PRN PRN Reason: Chest Pain Stop: 10/15/18 06:18 Tamsulosin HCl (Flomax) 0.4 mg PO HS [facility] Stop: 10/15/18 20:59 Last Admin: 08/21/18 21:23 Dose: 0.4 mg Zolpidem Tartrate (Ambien) 5 mg PO HS PRN PRN Reason: Insomnia Stop: 10/14/18 18:41 Last Admin: 08/21/18 21:24 Dose: 5 mg General: Alert, Oriented x3 HEENT: Atraumatic, PERRLA, EOMI Neck: Supple Cardiovascular: Regular rate, Normal S1, Normal S2 Lungs: Clear to auscultation Abdomen: Bowel sounds Extremities: no Clubbing, no Cyanosis, no Edema Neurological: Normal gait, Normal speech Assessment/Plan - Assessment Assessment: Psychosis Type 2 DM better controlled. HTN Depression Cognitive Impairment Incontinence Diabetic Neuropathy CAD BPH Chronic LBP - Plan Plan: admit to [facility] continue home meds increase Lantus to 7u BID Nutritional Asmnt/Malnutr-PDOC - Dietary Evaluation Malnutrition Findings (Please click <Entered> for more info): Nutritional Asmnt/Malnutrition Start: 08/19/18 14: 45 Text: Status: Complete Freq: Protocol: Document 08/19/18 14:52 LCHENG (Rec: 08/19/18 14:56 LCHENG [email or web address]) Nutritional Asmnt/Malnutrition Patient General Information Nutritional Screening Moderate Risk Diagnosis psychosis Pertinent Medical Hx/Surgical Hx CAD, HTN, dementia, depression , psychosis, low back pain, chronic renal insuff, DM Subjective Information Pt seen sleeping in bed at time of visit. per EMR, PO intake 100% since admission. Current Diet Order/ Nutrition Support CCHO 60gm, low NA Pertinent Medications vit C, vit D3, iron, lantus, humalog, glucophage Pertinent Labs 08/18-08/19 POC 149-321 Nutritional Hx/Data Height 1.73 m Height (Calculated Centimeters) 172.7 Current Weight (lbs) 68.039 kg Weight (Calculated Kilograms) 68.0 Weight (Calculated Grams) 52699.9 [place] Body Weight 154 Body Mass Index (BMI) 22.8 Weight Status Approriate GI Symptoms GI Symptoms None Last BM 08/17 Difficult in: None Skin Integrity/Comment: intact Current %PO Good (75-100%) Estimated Nutritional Goals BEE in Kcals: Using Current wt Calories/Kcals/Kg 25-30 Kcals Calculated 5411-2426 Protein: Using Current wt Protein g/k Protein Calculated 68 Fluid: ml 1700-2040ml (1ml/kcal) Nutritional Problem 1. Problem Problem altered nutritiion relate labs Etiology hyperglycemia Signs/Symptoms: POC 149-321 Malnutrition Alert Is there a minimum of two criteria No selected? Query Text:Check all the applicable criteria. A minimum of two criteria are recommended for diagnosis of either severe or non-severe malnutrition. Malnutrition Related to Morbid Obesity Malnutrition related to morbid obesity No Intervention/Recommendation Comments 1. Continue with [facility] 60gm low sodium diet as ordered. MD to adjust insulin regimen for optimal glycemic control. 2. Monitor PO intake, wt, labs and skin integrity 3. F/U as moderate risk in 3-5 days Expected Outcomes/Goals Expected Outcomes/Goals 1. PO intake to meet at least 75% of nutritional needs. 2. Wt stability, skin to remain intact, labs to approach WNL.
--- NOTE | 2018-08-22 13:33 | Progress Notes ---
DATE: 08/22/2018 SUBJECTIVE: Staff was spoken to. The patient is interviewed. Mood is noted to be irritable. Affect is constricted. The patient is stating there is nothing wrong with him and he states that he needs to be in the facility rather than here. Coping skills are noted to be very poor. The patient is stating that he has not done anything sexually inappropriate and he could not understand the reason for him to be in here. ASSESSMENT: The patient is getting frustrated. PLAN: To continue the patient with the supportive therapy and work with the lead case manager and getting the patient back to the facility. JOB# [id number]
--- NOTE | 2018-08-22 20:58 | Progress Notes ---
DATE: 08/21/2018 PSYCHOLOGY PROGRESS NOTE SUBJECTIVE: The patient is seen up in his wheelchair. The patient is interviewed. Case is discussed with staff. Staff reports that the patient refuses medication at times. This commercial lines underwriter discussed with the patient that if he refuses his pain medication that the staff will not attempt to provide it until the next dosage time. The patient became more agreeable. The patient has not been sexually inappropriate according to the staff. The patient continues to deny that he had been sexually inappropriate and does not understand his reason for hospitalization. OBJECTIVE: Mood is irritable. Affect is constricted. Thought process is linear and concrete. The patient denied any hallucinations or delusions. The patient's behavior is intermittently noncompliant with care and is easily frustrated. ASSESSMENT AND PLAN: The patient continues to be easily frustrated and agitated. We provided de-escalation and positive reinforcement for the patient to become compliant and stay compliant with all aspects of his care and treatment. We provided remotivation towards treatment goals and for the patient to follow through with staff direction. We provided coping strategies for phase of life issues. We provided boundary awareness and definitions with respect to inappropriate sexual behavior and comments or gestures. We will follow up in 2-3 days to continue supportive psychotherapy as well as behavioral management. [facility]# [id number] LISSETH
[2018-08-23] MEDS: INSULIN LISPRO SLIDING SCALE 100 UNITS/ML UNIT SUBQ SCH ×4 (07:28→21:00)
[2018-08-23] MEDS: Insulin Glargine 100 units/ml 10ml Vial SUBQ SCH ×2 (08:30→16:46)
[2018-08-23] MEDS: Multivitamin Tab PO SCH (08:34)
[2018-08-23] MEDS: Ferrous Sulfate 325 MG TAB PO SCH (08:35)
--- NOTE | 2018-08-23 19:56 | Progress Notes ---
DATE: 08/23/2018 SUBJECTIVE: Staff was spoken to. The patient is interviewed. Mood is noted to be irritable. Affect is constricted. Insight and judgment at this time are noted to be limited. The patient is reported to have been trying to go off from the staff members. The patient is stating that there is no reason for him to be in here. The patient is not sexually preoccupied. The patient is stating it was a mistake for them to bring him in here. ASSESSMENT: The patient is demented and impulsive. It is being closely monitored. PLAN: To continue the patient with the supportive therapy and work with the caser shoe parts to see if we can discharge the patient back to the facility tomorrow. JOB# [id number]
[2018-08-24] MEDS: INSULIN LISPRO SLIDING SCALE 100 UNITS/ML UNIT SUBQ SCH ×4 (06:44→20:55)
--- NOTE | 2018-08-24 08:12 | General Progress Note ---
Subjective - Review of Systems Service Date: 08/24/18 Subjective: Patient is awake, alert, no acute distress. Vs T 97.3 P96 BP 127/78 R20 Blood Sugars mid 100's. Objective - Results Recent Labs: Laboratory Last Values POC Glucose 170 MG/DL (70 - 105) H 08/24/18 06:20 Triglycerides 144 mg/dL (<150) 08/16/18 05:50 Cholesterol 206 mg/dL (<200) H 08/16/18 05:50 LDL Cholesterol Direct 164 mg/dL (75-193) 08/16/18 05:50 HDL Cholesterol 39 mg/dL (23-92) 08/16/18 05:50 - Physical Exam Vitals and I&O: Vital Signs Temp 97.3 F 08/24/18 06:35 Pulse 96 08/24/18 06:35 Resp 20 08/24/18 06:35 BP 127/78 08/24/18 06:35 Pulse Ox 94 08/24/18 06:35 Intake & Output 08/23/18 08/24/18 08/24/18 18:59 06:59 18:59 Intake Total 750 240 Balance 750 240 Intake: Oral 750 240 Other: # Voids 2 1 # Bowel Movements 1 Stool Characteristics Formed Active Medications: Current Medications Acetaminophen (Tylenol) 650 mg PO Q4HR PRN PRN Reason: Mild Pain / Temp above 100 Stop: 10/14/18 18:41 Last Admin: 08/23/18 23:04 Dose: 650 mg Al Hydrox/Mg Hydrox/Simethicone (Maalox) 30 ml PO Q4HR PRN PRN Reason: GI DISTRESS Stop: 10/14/18 18:41 Amlodipine Besylate (Norvasc) 10 mg PO DAILY [facility] Stop: 10/16/18 08:59 Last Admin: 08/23/18 08:34 Dose: 10 mg Ascorbic Acid (Vitamin C) 500 mg PO DAILY [facility] Stop: 10/15/18 08:59 Last Admin: 08/23/18 08:35 Dose: 500 mg Baclofen (Lioresal) 10 mg PO TID [facility] Stop: 10/15/18 08:59 Last Admin: 08/23/18 21:00 Dose: 10 mg Cholecalciferol (Vitamin D3) 2,000 iu PO DAILY [facility] Stop: 10/15/18 08:59 Last Admin: 08/23/18 08:35 Dose: 2,000 iu Clopidogrel Bisulfate (Plavix) 75 mg PO DAILY [facility] Stop: 10/16/18 08:59 Last Admin: 08/23/18 08:35 Dose: 75 mg Dextrose (D50w) 50 ml IVP PRN PRN PRN Reason: Blood Glucose less than 70 Stop: 10/15/18 05:27 Dextrose (Glutose 40%) 18.75 gm PO PRN PRN PRN Reason: Blood Glucose less than 70 Stop: 10/15/18 05:27 Diphenhydramine HCl (Benadryl) 25 mg PO Q6HR PRN PRN Reason: Itching Stop: 10/15/18 20:12 Ferrous Sulfate (Iron) 325 mg PO DAILY [facility] Stop: 10/15/18 08:59 Last Admin: 08/23/18 08:35 Dose: 325 mg Finasteride (Proscar) 5 mg PO DAILY [facility]; Protocol Stop: 10/15/18 08:59 Last Admin: 08/23/18 08:34 Dose: 5 mg Gabapentin (Neurontin) 600 mg PO DAILY [facility] Stop: 10/15/18 08:59 Last Admin: 08/23/18 08:34 Dose: 600 mg Glucagon (Glucagen) 1 mg IM PRN PRN PRN Reason: Blood Glucose less than 70 Stop: 10/15/18 05:27 Insulin Glargine (Lantus Insulin) 7 units SUBQ BID [facility] Stop: 10/19/18 08:59 Last Admin: 08/23/18 16:46 Dose: 7 unit Insulin Human Lispro (Humalog Insulin Sliding Scale) 0 units SUBQ ACHS [facility]; Protocol Stop: 10/15/18 07:29 Last Admin: 08/24/18 06:44 Dose: 2 units Lorazepam (Ativan) 0.5 mg PO Q4HR PRN; Protocol PRN Reason: Agitation Stop: 09/14/18 18:41 Last Admin: 08/23/18 23:52 Dose: 0.5 mg Magnesium Hydroxide (Milk Of Magnesia) 30 ml PO HS PRN PRN Reason: Constipation Metformin HCl (Glucophage) 1,000 mg PO BIDWM [facility] Stop: 10/15/18 07:59 Last Admin: 08/23/18 17:57 Dose: 1,000 mg Multivitamins/Vitamin C (Theragran) 1 tab PO DAILY [facility] Stop: 10/15/18 08:59 Last Admin: 08/23/18 08:34 Dose: 1 tab Nitroglycerin (Nitrostat) 0.4 mg SL Q5MIN PRN PRN Reason: Chest Pain Stop: 10/15/18 06:18 Tamsulosin HCl (Flomax) 0.4 mg PO HS [facility] Stop: 10/15/18 20:59 Last Admin: 08/23/18 21:00 Dose: 0.4 mg Zolpidem Tartrate (Ambien) 5 mg PO HS PRN PRN Reason: Insomnia Stop: 10/14/18 18:41 Last Admin: 08/23/18 21:37 Dose: 5 mg General: Alert, Oriented x3 HEENT: Atraumatic, PERRLA, EOMI Neck: Supple Cardiovascular: Regular rate, Normal S1, Normal S2 Lungs: Clear to auscultation Abdomen: Bowel sounds Extremities: no Clubbing, no Cyanosis, no Edema Neurological: Normal gait, Normal speech Assessment/Plan - Assessment Assessment: Psychosis Type 2 DM better controlled. HTN Depression Cognitive Impairment Incontinence Diabetic Neuropathy CAD BPH Chronic LBP - Plan Plan: [facility] continue home meds increase Lantus to 7u BID Nutritional Asmnt/Malnutr-PDOC - Dietary Evaluation Malnutrition Findings (Please click <Entered> for more info): Nutritional Asmnt/Malnutrition Start: 08/19/18 14: 45 Text: Status: Complete Freq: Protocol: Document 08/19/18 14:52 LCHENG (Rec: 08/19/18 14:56 LCCARLOSG [email or web address]) Nutritional Asmnt/Malnutrition Patient General Information Nutritional Screening Moderate Risk Diagnosis psychosis Pertinent Medical Hx/Surgical Hx CAD, HTN, dementia, depression , psychosis, low back pain, chronic renal insuff, DM Subjective Information Pt seen sleeping in bed at time of visit. per EMR, PO intake 100% since admission. Current Diet Order/ Nutrition Support CCHO 60gm, low NA Pertinent Medications vit C, vit D3, iron, lantus, humalog, glucophage Pertinent Labs 08/18-08/19 POC 149-321 Nutritional Hx/Data Height 1.73 m Height (Calculated Centimeters) 172.7 Current Weight (lbs) 68.039 kg Weight (Calculated Kilograms) 68.0 Weight (Calculated Grams) 55894.9 [place] Body Weight 154 Body Mass Index (BMI) 22.8 Weight Status Approriate GI Symptoms GI Symptoms None Last BM 08/17 Difficult in: None Skin Integrity/Comment: intact Current %PO Good (75-100%) Estimated Nutritional Goals BEE in Kcals: Using Current wt Calories/Kcals/Kg 25-30 Kcals Calculated 9673-6152 Protein: Using Current wt Protein g/k Protein Calculated 68 Fluid: ml 1700-2040ml (1ml/kcal) Nutritional Problem 1. Problem Problem altered nutritiion relate labs Etiology hyperglycemia Signs/Symptoms: POC 149-321 Malnutrition Alert Is there a minimum of two criteria No selected? Query Text:Check all the applicable criteria. A minimum of two criteria are recommended for diagnosis of either severe or non-severe malnutrition. Malnutrition Related to Morbid Obesity Malnutrition related to morbid obesity No Intervention/Recommendation Comments 1. [facility] as ordered. MD to adjust insulin regimen for optimal glycemic control. 2. Monitor PO intake, wt, labs and skin integrity 3. F/U as moderate risk in 3-5 days Expected Outcomes/Goals Expected Outcomes/Goals 1. PO intake to meet at least 75% of nutritional needs. 2. Wt stability, skin to remain intact, labs to approach WNL.
[2018-08-24] MEDS: Multivitamin Tab PO SCH (08:24)
[2018-08-24] MEDS: Ferrous Sulfate 325 MG TAB PO SCH (08:24)
[2018-08-24] MEDS: Insulin Glargine 100 units/ml 10ml Vial SUBQ SCH ×2 (08:32→17:25)
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
[2018-08-25] MEDS: INSULIN LISPRO SLIDING SCALE 100 UNITS/ML UNIT SUBQ SCH (06:34)
--- NOTE | 2018-08-25 08:15 | General Progress Note ---
Subjective - Review of Systems Service Date: 08/25/18 Subjective: Patient is awake, alert, no acute distress. Vs T 97.3 P96 BP 127/78 R20 Blood Sugars mid 100's. Objective - Results Recent Labs: Laboratory Last Values POC Glucose 146 MG/DL (70 - 105) H 08/25/18 05:50 Triglycerides 144 mg/dL (<150) 08/16/18 05:50 Cholesterol 206 mg/dL (<200) H 08/16/18 05:50 LDL Cholesterol Direct 164 mg/dL (75-193) 08/16/18 05:50 HDL Cholesterol 39 mg/dL (23-92) 08/16/18 05:50 - Physical Exam Vitals and I&O: Vital Signs Temp 98.9 F 08/25/18 06:10 Pulse 90 08/25/18 06:10 Resp 20 08/25/18 06:10 BP 131/64 08/25/18 06:10 Pulse Ox 97 08/25/18 06:10 Intake & Output 08/24/18 08/25/18 08/25/18 18:59 06:59 18:59 Intake Total 900 400 Balance 900 400 Intake: Oral 900 400 Other: # Voids 2 # Bowel Movements 0 Active Medications: Current Medications Acetaminophen (Tylenol) 650 mg PO Q4HR PRN PRN Reason: Mild Pain / Temp above 100 Stop: 10/14/18 18:41 Last Admin: 08/24/18 22:13 Dose: 650 mg Al Hydrox/Mg Hydrox/Simethicone (Maalox) 30 ml PO Q4HR PRN PRN Reason: GI DISTRESS Stop: 10/14/18 18:41 Amlodipine Besylate (Norvasc) 10 mg PO DAILY [facility] Stop: 10/16/18 08:59 Last Admin: 08/24/18 08:21 Dose: 10 mg Ascorbic Acid (Vitamin C) 500 mg PO DAILY [facility] Stop: 10/15/18 08:59 Last Admin: 08/24/18 08:24 Dose: 500 mg Baclofen (Lioresal) 10 mg PO TID [facility] Stop: 10/15/18 08:59 Last Admin: 08/24/18 20:53 Dose: 10 mg Cholecalciferol (Vitamin D3) 2,000 iu PO DAILY [facility] Stop: 10/15/18 08:59 Last Admin: 08/24/18 08:20 Dose: 2,000 iu Clopidogrel Bisulfate (Plavix) 75 mg PO DAILY [facility] Stop: 10/16/18 08:59 Last Admin: 08/24/18 08:24 Dose: 75 mg Dextrose (D50w) 50 ml IVP PRN PRN PRN Reason: Blood Glucose less than 70 Stop: 10/15/18 05:27 Dextrose (Glutose 40%) 18.75 gm PO PRN PRN PRN Reason: Blood Glucose less than 70 Stop: 10/15/18 05:27 Diphenhydramine HCl (Benadryl) 25 mg PO Q6HR PRN PRN Reason: Itching Stop: 10/15/18 20:12 Ferrous Sulfate (Iron) 325 mg PO DAILY [facility] Stop: 10/15/18 08:59 Last Admin: 08/24/18 08:24 Dose: 325 mg Finasteride (Proscar) 5 mg PO DAILY [facility]; Protocol Stop: 10/15/18 08:59 Last Admin: 08/24/18 08:24 Dose: 5 mg Gabapentin (Neurontin) 600 mg PO DAILY [facility] Stop: 10/15/18 08:59 Last Admin: 08/24/18 08:20 Dose: 600 mg Glucagon (Glucagen) 1 mg IM PRN PRN PRN Reason: Blood Glucose less than 70 Stop: 10/15/18 05:27 Insulin Glargine (Lantus Insulin) 7 units SUBQ BID [facility] Stop: 10/19/18 08:59 Last Admin: 08/24/18 17:25 Dose: 7 unit Insulin Human Lispro (Humalog Insulin Sliding Scale) 0 units SUBQ ACHS [facility]; Protocol Stop: 10/15/18 07:29 Last Admin: 08/25/18 06:34 Dose: Not Given Lorazepam (Ativan) 0.5 mg PO Q4HR PRN; Protocol PRN Reason: Agitation Stop: 09/14/18 18:41 Last Admin: 08/23/18 23:52 Dose: 0.5 mg Magnesium Hydroxide (Milk Of Magnesia) 30 ml PO HS PRN PRN Reason: Constipation Metformin HCl (Glucophage) 1,000 mg PO BIDWM [facility] Stop: 10/15/18 07:59 Last Admin: 08/24/18 17:35 Dose: Not Given Multivitamins/Vitamin C (Theragran) 1 tab PO DAILY [facility] Stop: 10/15/18 08:59 Last Admin: 08/24/18 08:24 Dose: 1 tab Nitroglycerin (Nitrostat) 0.4 mg SL Q5MIN PRN PRN Reason: Chest Pain Stop: 10/15/18 06:18 Tamsulosin HCl (Flomax) 0.4 mg PO HS [facility] Stop: 10/15/18 20:59 Last Admin: 08/24/18 20:53 Dose: 0.4 mg Zolpidem Tartrate (Ambien) 5 mg PO HS PRN PRN Reason: Insomnia Stop: 10/14/18 18:41 Last Admin: 08/24/18 20:53 Dose: 5 mg General: Alert, Oriented x3 HEENT: Atraumatic, PERRLA, EOMI Neck: Supple Cardiovascular: Regular rate, Normal S1, Normal S2 Lungs: Clear to auscultation Abdomen: Bowel sounds Extremities: no Clubbing, no Cyanosis, no Edema Neurological: Normal gait, Normal speech Assessment/Plan - Assessment Assessment: Psychosis Type 2 DM better controlled. HTN Depression Cognitive Impairment Incontinence Diabetic Neuropathy CAD BPH Chronic LBP - Plan Plan: admit to [facility] continue home meds increase Lantus to 7u BID Nutritional Asmnt/Malnutr-PDOC - Dietary Evaluation Malnutrition Findings (Please click <Entered> for more info): Nutritional Asmnt/Malnutrition Start: 08/19/18 14: 45 Text: Status: Complete Freq: Protocol: Document 08/19/18 14:52 LCHENG (Rec: 08/19/18 14:56 LCHENG [email or web address]) Nutritional Asmnt/Malnutrition Patient General Information Nutritional Screening Moderate Risk Diagnosis psychosis Pertinent Medical Hx/Surgical Hx CAD, HTN, dementia, depression , psychosis, low back pain, chronic renal insuff, DM Subjective Information Pt seen sleeping in bed at time of visit. per EMR, PO intake 100% since admission. Current Diet Order/ Nutrition Support CCHO 60gm, low NA Pertinent Medications vit C, vit D3, iron, lantus, humalog, glucophage Pertinent Labs 08/18-08/19 POC 149-321 Nutritional Hx/Data Height 1.73 m Height (Calculated Centimeters) 172.7 Current Weight (lbs) 68.039 kg Weight (Calculated Kilograms) 68.0 Weight (Calculated Grams) 60480.9 [place] Body Weight 154 Body Mass Index (BMI) 22.8 Weight Status Approriate GI Symptoms GI Symptoms None Last BM 08/17 Difficult in: None Skin Integrity/Comment: intact Current %PO Good (75-100%) Estimated Nutritional Goals BEE in Kcals: Using Current wt Calories/Kcals/Kg 25-30 Kcals Calculated 4588-1588 Protein: Using Current wt Protein g/k Protein Calculated 68 Fluid: ml 1700-2040ml (1ml/kcal) Nutritional Problem 1. Problem Problem altered nutritiion relate labs Etiology hyperglycemia Signs/Symptoms: POC 149-321 Malnutrition Alert Is there a minimum of two criteria No selected? Query Text:Check all the applicable criteria. A minimum of two criteria are recommended for diagnosis of either severe or non-severe malnutrition. Malnutrition Related to Morbid Obesity Malnutrition related to morbid obesity No Intervention/Recommendation Comments 1. Continue with [facility] 60gm low sodium diet as ordered. MD to adjust insulin regimen for optimal glycemic control. 2. Monitor PO intake, wt, labs and skin integrity 3. F/U as moderate risk in 3-5 days Expected Outcomes/Goals Expected Outcomes/Goals 1. PO intake to meet at least 75% of nutritional needs. 2. Wt stability, skin to remain intact, labs to approach WNL.
[2018-08-25] MEDS: Multivitamin Tab PO SCH (09:04)
[2018-08-25] MEDS: Insulin Glargine 100 units/ml 10ml Vial SUBQ SCH (09:37)
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
--- NOTE | 2018-08-26 11:12 | Progress Notes ---
DATE: 08/25/2018 SUBJECTIVE: Staff was spoken to. The patient is interviewed. Mood is noted to be anxious. Affect is appropriate. Not suicidal or homicidal. Insight and judgment are noted to be improving. Impulse control is noted to be fair. Coping skills are noted to be fair. The patient has been able to verbalize the concerns rather than to act out. The patient is not accepted back at the facility and the patient's daughter decided to take the patient home, so that she can look for a different facility for this patient. ASSESSMENT: The patient is stabilizing. PLAN: To discharge the patient to the care of his daughter for followup on outpatient basis ____ concerns rather than to act out. [facility]# [id number]
== END 2018-08-25 13:00 | disposition home or self-care (01) | DRG 885 ==
LOC: GERO 16:44
PROVIDERS: ADMIT Psychiatry & Neurology Psychiatry; ATTEND Psychiatry & Neurology Psychiatry
DX: F29 Unspecified psychosis not due to a substance or known physiological condition (principal); N18.9 Chronic kidney disease, unspecified; E11.00 Type 2 diabetes mellitus with hyperosmolarity without nonketotic hyperglycemic-hyperosmolar coma (NKHHC); F03.91 Unspecified dementia, unspecified severity, with behavioral disturbance; F32.9 Major depressive disorder, single episode, unspecified; E11.40 Type 2 diabetes mellitus with diabetic neuropathy, unspecified; I25.10 Atherosclerotic heart disease of native coronary artery without angina pectoris; N40.0 Benign prostatic hyperplasia without lower urinary tract symptoms; G89.29 Other chronic pain; M54.5 Low back pain; I12.9 Hypertensive chronic kidney disease with stage 1 through stage 4 chronic kidney disease, or unspecified chronic kidney disease; E11.22 Type 2 diabetes mellitus with diabetic chronic kidney disease; R32 Unspecified urinary incontinence; Z79.4 Long term (current) use of insulin
CPT/HCPCS: 36415-UA; 80061-TC; 82948-90; 83036-90; J1815; Z7610